=== PATIENT | female | born 1995 | race Caucasian/White ===

== ENCOUNTER 2022-09-10 10:30 | Day surgery (SDC) | payer MEDICAID, OTHER ==
[2022-09-10 10:52] VITALS: BMI 28.3
[2022-09-10 11:59] LABS: Bilirubin Neg (Negative); Blood, Urine Negative (Negative); CAUTI Indications for Culture Pregnancy; Clarity Clear (Clear); Glucose, Urine (Dipstick) Normal (Negative); Ketone, Urine Negative (Negative); Leukocyte 25 (Negative); Nitrite Negative (Negative); Protein, Urine (Dipstick) Negative (Neg-Trace); Specific Gravity, Urine 1.015 (1.005-1.030); Urobilinogen Normal mg/dL (Less than 2); pH, Urine 6.5 (5.0-9.0)
[2022-09-10 12:04] LABS: Urine Culture Reflex Yes Yes
[2022-09-10 12:08] LABS: Bacteria/HPF Rare-Few HPF (None Seen); RBC/HPF 0-3 HPF (0-3); Squamous Epithelial 0-3 HPF (0-3); WBC/HPF 0-3 HPF (0-3)
[2022-09-10 12:18] LABS: Fetal Membranes Rupture No Membranes Rupture (No Rupture)
[2022-09-10] MEDS ORDERED: Lactated Ringer's 1,000 ML IV SCH (12:45)
[2022-09-10 13:31] LABS: #Eosinphils 0.1 10x3/uL (0.0-0.5); #Monocytes 0.7 10x3/uL (0.0-1.1); #Neutrophils 9.8 10x3/uL (1.5-8.4); %Basophils 0.2 % (0.0-2.0); %Eosinophils 0.6 % (0.0-6.0); %Lymphocytes 18.4 % (18.0-47.0); %Monocytes 5.4 % (0.0-10.0); %Neutrophils 74.7 % (40.0-75.0); Hemoglobin 12.4 g/dL (12.0-15.5); Mean Corpuscular HGB CONC 35.2 g/dL (32.0-36.0); Mean Corpuscular Hemoglobin 31.8 pg (27.0-33.0); Mean Corpuscular Volume 90.3 fl (81.6-98.3); Mean Platelet Volume 11.4 fl (7.4-10.4); Platelet Count 189 10x3/uL (150-450); RBC Distribution Width 12.8 % (11.5-14.5); White Blood Cell (WBC) Count 13.1 10x3/uL (3.5-10.5)
== END 2022-09-10 15:20 | disposition home or self-care (01) ==
LOC: CSHLD/OP 10:30
PROVIDERS: ATTEND Family Medicine
DX: O26.892 Other specified pregnancy related conditions, second trimester (principal); R10.2 Pelvic and perineal pain; Z87.891 Personal history of nicotine dependence; Z87.59 Personal history of other complications of pregnancy, childbirth and the puerperium; Z98.891 History of uterine scar from previous surgery; Z3A.22 22 weeks gestation of pregnancy
CPT/HCPCS: 36415; 76815; 81001; 84112; 85025; 87086; 96360; 96361; 99283

== ENCOUNTER 2022-10-09 14:17 | Outpatient (CLI) | payer OTHER | END 2022-10-09 14:18 | disposition home or self-care (01) | LOC: CSHULT 14:17 | PROVIDERS: ATTEND Family Medicine | DX: Z34.82 Encounter for supervision of other normal pregnancy, second trimester (principal) | CPT/HCPCS: 76805 ==

== ENCOUNTER 2022-10-29 11:54 | Day surgery (SDC) | payer OTHER ==
[2022-10-29] MEDS ORDERED: hydrALAZINE 20 MG/ML VIAL SLOW IVP PRN (12:56)
[2022-10-29] MEDS ORDERED: Acetaminophen 325 MG TAB PO SCH (13:00)
[2022-10-29 14:15] VITALS: BMI 30.2
== END 2022-10-29 14:45 | disposition home or self-care (01) ==
LOC: CSHLD/OP 11:54
PROVIDERS: ATTEND Family Medicine
DX: O99.891 Other specified diseases and conditions complicating pregnancy (principal); R51.9 Headache, unspecified; O47.03 False labor before 37 completed weeks of gestation, third trimester; Z3A.29 29 weeks gestation of pregnancy; Z88.8 Allergy status to other drugs, medicaments and biological substances; Z87.891 Personal history of nicotine dependence
CPT/HCPCS: 99282

== ENCOUNTER 2023-01-01 11:51 | Outpatient (CLI) | payer OTHER | END 2023-01-01 11:52 | disposition home or self-care (01) | LOC: CSHLAB 11:51 | PROVIDERS: ATTEND Family Medicine | DX: Z01.812 Encounter for preprocedural laboratory examination (principal); O34.218 Maternal care for other type scar from previous cesarean delivery; Z53.9 Procedure and treatment not carried out, unspecified reason | CPT/HCPCS: 85014; 85018; 85049; 86780; 86850; 86900; 86901; 87340 ==

== ENCOUNTER 2023-01-04 09:45 | Inpatient (IN) | payer OTHER ==
[2023-01-01 13:23] LABS: Hemoglobin 12.3 g/dL (12.0-15.5); Platelet Count 123 10x3/uL (150-450)
[2023-01-01 13:57] LABS: Syphilis Antibody Nonreactive (Nonreactive); Syphilis Antibody Index 0.03 S/CO (<1.00 Non-Reactive)
[2023-01-01 13:59] LABS: HBSAg Index 0.16 S/CO (0-0.99); Hep B Surf Ag Non-Reactive S/CO (NonReactive)
[2023-01-04] MEDS ORDERED: Promethazine HCl 25 MG/ML VIAL IM PRN ×2 (10:20→18:41)
[2023-01-04] MEDS ORDERED: Diphenoxylate HCl/Atropine Tablet PO PRN (10:20)
[2023-01-04] MEDS ORDERED: CEFAZOLIN 2 GM in Sodium Chloride 0.9% 100 ML IVPB SCH (10:20)
[2023-01-04] MEDS ORDERED: Lactated Ringer's 1,000 ML IV SCH (10:20)
[2023-01-04] MEDS ORDERED: Ondansetron PF 4 MG/2 ML Vial IVP PRN ×3 (10:20→20:47)
[2023-01-04] MEDS ORDERED: Carboprost 250 MCG/ML AMP IM PRN (10:20)
[2023-01-04] MEDS ORDERED: Famotidine/PF 20 mg/2ml Vial SLOW IVP PRN (10:20)
[2023-01-04] MEDS ORDERED: Methylergonovine 0.2 MG/ML VIAL IM PRN (10:20)
[2023-01-04] MEDS ORDERED: NS w/ Oxytocin 30 units 500 ML IV SCH ×2 (10:20→21:00)
[2023-01-04] MEDS ORDERED: Tranexamic Acid 1,000 MG/10 ML VIAL IVP PRN (10:20)
[2023-01-04] MEDS ORDERED: hydrALAZINE 20 MG/ML VIAL SLOW IVP PRN ×2 (10:20→20:47)
[2023-01-04] MEDS ORDERED: Bicitra 30 ML UDCUP PO PRN (10:20)
[2023-01-04] MEDS ORDERED: Misoprostol 200 MCG TAB PR PRN (10:20)
[2023-01-04] MEDS ORDERED: Ondansetron PF 4 MG/2 ML Vial ONE (17:33)
[2023-01-04] MEDS ORDERED: Oxytocin 10 UNITS/ML VIAL ONE ×2 (17:33→18:36)
[2023-01-04] MEDS ORDERED: PHENYLEPHRINE-NS 100 MCG/ML 10 ML SYRINGE ONE (17:33)
[2023-01-04] MEDS ORDERED: Fentanyl 100 MCG/2 ML VIAL ONE (17:33)
[2023-01-04] MEDS ORDERED: Morphine PF 10 MG/10 ML VIAL ONE (17:33)
[2023-01-04] MEDS ORDERED: Phenylephrine 40 MG/NS 250 ML 250 ML ONE (17:34)
[2023-01-04] MEDS ORDERED: ePHEDrine Sulfate 50 MG/10 ML VIAL ONE (17:58)
[2023-01-04] MEDS ORDERED: Glycopyrrolate 0.2 MG/ML 5 ML SYRINGE ONE (18:00)
[2023-01-04] MEDS ORDERED: Midazolam HCl 2 mg/2 ml Vial ONE (18:03)
[2023-01-04 18:24] VITALS: BMI 32.9
[2023-01-04] MEDS ORDERED: Naloxone HCl 0.4 mg/ml Vial IV PRN (18:41)
[2023-01-04] MEDS ORDERED: Ondansetron HCl/PF 4 MG/2 ML Vial IVP PRN (18:41)
[2023-01-04] MEDS ORDERED: Naloxone HCl 0.4 mg/ml Vial IVP PRN ×2 (18:41)
[2023-01-04] MEDS ORDERED: Fentanyl 100 MCG/2 ML VIAL SLOW IVP PRN (18:41)
[2023-01-04] MEDS ORDERED: Moisturizing Cream (Eucerin) 113 GM JAR TOP PRN (18:41)
[2023-01-04] MEDS ORDERED: Ketorolac Tromethamine 30 MG/ML VIAL IVP PRN (18:41)
[2023-01-04] MEDS ORDERED: Promethazine HCl 25 MG SUPP PR PRN (18:41)
[2023-01-04] MEDS ORDERED: Meperidine HCl/PF 25 MG/ML VIAL SLOW IVP PRN (18:41)
[2023-01-04] MEDS ORDERED: Communication Order-Pharmacy FS SCH (18:45)
[2023-01-04] MEDS ORDERED: Ketorolac Tromethamine 30 MG/ML VIAL IVP SCH ×2 (18:45→23:59)
[2023-01-04] MEDS: diphenhydrAMINE 50 MG/ML VIAL IVP PRN (20:00)
[2023-01-04 20:03] LABS: Hemoglobin 12.3 g/dL (12.0-15.5); Mean Corpuscular HGB CONC 33.4 g/dL (32.0-36.0); Mean Corpuscular Volume 89.8 fl (81.6-98.3); Mean Platelet Volume 12.4 fl (7.4-10.4); Platelet Count 130 10x3/uL (150-450); RBC Distribution Width 12.6 % (11.5-14.5); White Blood Cell (WBC) Count 10.4 10x3/uL (3.5-10.5)
[2023-01-04] MEDS ORDERED: fentaNYL 50 mcg/mL 1 mL Vial ONE (20:09)
[2023-01-04] MEDS ORDERED: Lanolin Ointment 7 GM TUBE TOP PRN (20:47)
[2023-01-04] MEDS ORDERED: Boostrix 0.5 ML (Tdap) VIAL (>/=7 yrs of age) IM ONE (20:47)
[2023-01-04] MEDS: Simethicone Chewable 80 MG TAB PO PRN (23:33)
[2023-01-05] MEDS: diphenhydrAMINE 50 MG/ML VIAL IVP PRN (00:45)
[2023-01-05 03:55] LABS: Hemoglobin 10.8 g/dL (12.0-15.5); Mean Corpuscular HGB CONC 33.3 g/dL (32.0-36.0); Mean Corpuscular Hemoglobin 29.8 pg (27.0-33.0); Mean Corpuscular Volume 89.5 fl (81.6-98.3); Platelet Count 103 10x3/uL (150-450); RBC Distribution Width 12.4 % (11.5-14.5); Red Blood Cell (RBC) Count 3.62 10x6/uL (3.90-5.03); White Blood Cell (WBC) Count 10.7 10x3/uL (3.5-10.5)
[2023-01-05] MEDS: Prenatal Vitamin 1 TAB PO SCH (07:59)
[2023-01-05] MEDS: Ketorolac Tromethamine 30 MG/ML VIAL IVP SCH ×3 (07:59→19:59)
[2023-01-05] MEDS: HYDROcodone/Acetaminophen 5/325 mg Tablet PO PRN ×4 (07:59→20:00)
[2023-01-05] MEDS: Ferrous Sulfate 325 MG TAB PO SCH ×3 (08:31→22:21)
[2023-01-05] MEDS: Simethicone Chewable 80 MG TAB PO PRN (22:34)
[2023-01-05] MEDS ORDERED: Ibuprofen 800 MG TAB PO SCH (23:59)
[2023-01-06] MEDS: HYDROcodone/Acetaminophen 5/325 mg Tablet PO PRN ×6 (00:33→21:30)
[2023-01-06] MEDS: Ibuprofen 800 MG TAB PO SCH ×3 (04:03→21:33)
[2023-01-06] MEDS: Simethicone Chewable 80 MG TAB PO PRN (04:29)
[2023-01-06] MEDS: Ferrous Sulfate 325 MG TAB PO SCH ×2 (07:29→21:23)
[2023-01-06] MEDS: Prenatal Vitamin 1 TAB PO SCH (08:48)
[2023-01-07] MEDS: HYDROcodone/Acetaminophen 5/325 mg Tablet PO PRN ×3 (02:04→12:00)
[2023-01-07] MEDS: Ibuprofen 800 MG TAB PO SCH ×2 (06:00→14:11)
[2023-01-07] MEDS: Ferrous Sulfate 325 MG TAB PO SCH ×2 (07:22→07:24)
[2023-01-07] MEDS: Prenatal Vitamin 1 TAB PO SCH (07:34)
[2023-01-07 08:55] VITALS: BP 119/74; TEMP 97.9
== END 2023-01-07 14:45 | disposition home or self-care (01) | DRG 788 ==
LOC: CSHLD 09:45 → CSHPP 21:09
PROVIDERS: ADMIT Family Medicine; ATTEND Family Medicine
PROC: 10D00Z1 Extraction of Products of Conception, Low, Open Approach (ICD-10-PCS; principal; 2023-01-04)
DX: O34.211 Maternal care for low transverse scar from previous cesarean delivery (principal); Z37.0 Single live birth; Z3A.39 39 weeks gestation of pregnancy; O99.344 Other mental disorders complicating childbirth; F41.9 Anxiety disorder, unspecified; F32.A Depression, unspecified; Z88.8 Allergy status to other drugs, medicaments and biological substances; Z79.899 Other long term (current) drug therapy
CPT/HCPCS: 36415; 51702; 85014; 85018; 85027; 85049; 86780; 86850; 86900; 86901; 87340; J1200; J1885; J2250; J2274; J2310; J2405; J2550; J2590; J3010; S0028